=== PATIENT | male | born 1985 | race Caucasian/White ===

== ENCOUNTER 2023-08-24 08:22 | Emergency (ER) | payer BC, SELFPAY ==
[2023-08-24 08:35] VITALS: BP 111/77; PULSE 73; RESP 18; TEMP 36.5; O2SAT 95; BMI 27.9
--- NOTE | 2023-08-24 08:54 | ED_ITS ---
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 He has no slow but redness on his left anterior foot as well. It has been little tender to walk on. No other specific complaints. No foreign body or trauma. He presents to ED for assessment. He is up-to-date Related Data Previous Rx's Medication Instructions Recorded ciprofloxacin HCl 500 mg tablet 500 mg PO BID #14 tabs 08/24/23 (Cipro) hydrocortisone 2.5 % topical cream 1 applic topical TID #20 grams 08/24/23 ketoconazole 2 % topical cream 1 applic topical DAILY #15 grams 08/24/23 sulfamethoxazole 800 1 tab PO BID 7 days #14 tabs 08/24/23 mg-trimethoprim 160 mg tablet Allergies Allergy/AdvReac Type Severity Reaction Status Date / Time No Known Drug Allergies Allergy Verified 08/02/23 07:12 Review of Systems Status of ROS: Reports: 6 or more systems reviewed and unremarkable except as noted in History and below [facility] Medical History Cellulitis of left leg ?L03.116 - Cellulitis of left lower limb (ICD-10) Social History Smoking Status: Unknown if ever smoked Exam Narrative: Exam Narrative: Objective: Vital signs unremarkable, afebrile Patient has a medial left distal leg 6 x 6 cm slightly raised tender area that is a little violaceous, with some skin that is desquamating over the top. There is no open wounds. He denies any open wound in the past. He has got a little bit of redness between his 1st and 2nd toe on the left anterior foot. This looks consistent with cellulitis. Const: Vital Signs, click to edit/add: Vital Signs - 24 hr 08/24/23 08:35 Temperature 97.7 F Pulse Rate [Right Femoral] 73 Respiratory Rate 18 Blood Pressure [Ri ght Upper Arm] 111/77 Pulse Oximetry 95 Oxygen Delivery Me thod Room Air Course Vital Signs Vital signs: Initial Vital Signs Temperature 97.7 F 08/24/23 08:35 Temperature Source Temporal Artery Scan 08/24/23 08:35 Pulse Rate 73 08/24/23 08:35 Respiratory Rate 18 08/24/23 08:35 Blood Pressure 111/77 08/24/23 08:35 Blood Pressure Mean 88 08/24/23 08:35 Blood Pressure Position Sitting 08/24/23 08:35 Pulse Oximetry 95 08/24/23 08:35 Oxygen Delivery Method Room Air 08/24/23 08:35 Vital Signs Temperature 97.7 F 08/24/23 08:35 Pulse Rate 73 08/24/23 08:35 Respiratory Rate 18 08/24/23 08:35 Blood Pressure 111/77 08/24/23 08:35 Pulse Oximetry 95 08/24/23 08:35 Oxygen Delivery Method Room Air 08/24/23 08:35 Temperature 97.7 F 08/24/23 08:35 Pulse Rate 73 08/24/23 08:35 Respiratory Rate 18 08/24/23 08:35 Blood Pressure 111/77 08/24/23 08:35 Pulse Oximetry 95 08/24/23 08:35 Oxygen Delivery Method Room Air 08/24/23 08:35 Medications Administered Medications: Discontinued Medications Generic Name Dose Route Start Last Admin Trade Name Freq PRN Reason Stop Dose Admin Ceftriaxone Sodium 500 mg 08/24/23 08:53 08/24/23 09:01 Ceftriaxone 500 Mg Vial IM 08/24/23 08:54 500 mg ONCE ONE Administration Lidocaine HCl 1 ml 08/24/23 08:53 08/24/23 09:01 Lidocaine 1% 5 Ml (Pf) 5 Ml Vial IM 1 ml DIRECTED PRN Administration Pain Medical Decision Making MDM Narrative Medical decision making narrative: [age] year white male [employer] employee who presents with left medial leg infection the process and swelling and redness as well as little bit of cellulitic change within his left foot and anteriorly between his 1st and 2nd toe. I think at this point be reasonable to cover him for cellulitis will given injection Rocephin. Will start him on Septra DS 1 p.o. b.i.d. x7 days as well as Cipro 500 b.i.d. x7 days. Warm pack and elevate the area. Limited weight- bearing. Will also give him some topical hydrocortisone and antifungal. Have him recheck with primary care within the next several days , will make an appointment at the [facility]. he was comfortable plan. Discharge Plan Discharge Clinical Impression: Cellulitis of left leg Patient Disposition: Home, Self-Care Condition: Stable Additional Instructions: Antibiotics at home, injection of antibiotic today, elevate the leg as best as possible, topical creams as prescribed. Follow up with her primary care doctor within the next 2-4 days, will make an appointment for this in [facility]. Follow up appointment is scheduled at the [facility] on 08/25 with a 9am appointment time. Please arrive at 8:50am to check in. Your appointment at the [facility] in September was cancelled. If you have any questions or need to reschedule, please call [phone]. [address] [address] Activity Level: Light activity Discharge Diet: Regular Prescriptions: New ciprofloxacin HCl [Cipro] 500 mg tablet 500 mg PO BID Qty: 14 0RF sulfamethoxazole-trimethoprim 800-160 mg tablet 1 tab PO BID 7 Days Qty: 14 0RF ketoconazole 2 % cream 1 applic topical DAILY Qty: 15 0RF hydrocortisone 2.5 % cream 1 applic topical TID Qty: 20 0RF Follow Up/Referrals: Provider,Not a Local [Primary Care Provider] - Stand Alone Forms: [employer] Info Instructions
[2023-08-24] MEDS: LIDOCAINE 1% 5 ml (pf) 5 ML VIAL 1 ML IM (09:01)
[2023-08-24] MEDS: cefTRIAXone 500 MG VIAL IM (09:01)
== END 2023-08-24 09:17 | disposition home or self-care (01) ==
LOC: ED 09:06
PROVIDERS: Emergency Provider Family Medicine
DX: L03.116 Cellulitis of left lower limb (principal)
CPT/HCPCS: 95992; 96372; 99283; J0696

== ENCOUNTER 2023-08-25 09:27 | Outpatient (CLI) | payer BC, SELFPAY | END 2023-08-25 09:28 | disposition home or self-care (01) | LOC: FRMREF 09:28 | PROVIDERS: Visit Provider Family Medicine | DX: L03.116 Cellulitis of left lower limb (principal) | CPT/HCPCS: 80053 ==